=== PATIENT | male | born 1990 | race Caucasian/White ===

== ENCOUNTER 2021-06-08 09:45 | Inpatient (IN) | payer OTHER ==
[~2021-06-08] VITALS: Ht 180.3 cm; Wt 95.8 kg
--- NOTE | 2021-06-08 10:51 | NUR ---
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
--- NOTE | 2021-06-08 11:22 | NUR ---
PT CAME IN CO FATIGUE, BOATENG, CONSTIPATION. PT IS SUPPOSED TO BE TAKING SYNTHROID AND RAN OUT ABOUT A WEEK AGO AND FOR THE LAST 2 DAYS HAS HAD NO ENERGY AND HAS BEEN SLEEPING MOST OF THE DAY.
[2021-06-08] MEDS ORDERED: SODIUM CHLORIDE FLUSH 10ML SYR IVF ONE (11:30)
[2021-06-08 11:55] LABS: BASOPHILS % (AUTO) 0 % (0-1); EOSINOPHILS % (AUTO) 0 % (1-7); LYMPHOCYTES % (AUTO) 18 % (22-44); MEAN CORPUSCULAR HEMOGLOBIN 30.3 pg (27.5-34.5); MEAN CORPUSCULAR HGB CONC 34.8 g/dL (33.2-36.2); MEAN PLATELET VOLUME 7.9 fL (7.4-10.4); MONOCYTES % (AUTO) 13 % (2-9); NEUTROPHILS % (AUTO) 68 % (42-75); PLATELET COUNT 226 x10^3/uL (130-400); RED BLOOD COUNT 5.15 x10^6/uL (4.38-5.82); RED CELL DISTRIBUTION WIDTH 13.7 % (9.4-14.8)
[2021-06-08 12:04] LABS: ALBUMIN 3.8 g/dL (3.4-5.0); ANION GAP 6 mmol/L (5-15); CHLORIDE 97 mmol/L (98-107)
[2021-06-08 12:16] LABS: ALANINE AMINOTRANSFERASE 133 U/L (12-78); ALKALINE PHOSPHATASE 224 U/L (45-117); BILIRUBIN,TOTAL 1.8 mg/dL (0.2-1.0); CREATININE 1.31 mg/dL (0.7-1.3); FREE T4 (FREE THYROXINE) 0.54 ng/dL (0.76-1.46); TOTAL PROTEIN 7.5 g/dL (6.4-8.2)
[2021-06-08] MEDS ORDERED: CLINDAMYCIN PMX 600MG/50ML 50 ML ONE (14:15)
[2021-06-08] MEDS ORDERED: ONDANSETRON 2MG/ML, 2ML ONE (14:25)
[2021-06-08] MEDS ORDERED: CLINDAMYCIN PMX 600MG/50ML 50 ML IV ONE (14:30)
[2021-06-08] MEDS ORDERED: ONDANSETRON 2MG/ML, 2ML IVPush ONE (14:30)
[2021-06-08] MEDS ORDERED: SODIUM CHLORIDE 0.9% 1,000 ML IV ONE (14:30)
[2021-06-08] MEDS ORDERED: LEVOTHYROXINE 100 MCG TABLET PO ONE (14:30)
--- NOTE | 2021-06-08 15:20 | NUR ---
PER . NO BLOOD CULTURES TO BE DRAWN
[2021-06-08] MEDS ORDERED: hydrALAzine 20 MG/ML, 1ML IVPush PRN (15:30)
[2021-06-08] MEDS ORDERED: OXYcodone/APAP 5/325MG TABLET PO PRN (15:30)
[2021-06-08] MEDS ORDERED: GUAIFENESIN/DM 200-20MG, 10ML UDC PO PRN (15:30)
[2021-06-08] MEDS ORDERED: KETOROLAC 30 MG/1 ML IM PRN (15:30)
[2021-06-08] MEDS ORDERED: BUTALB/APAP/CAFFEINE 50MG/325MG/40MG PO PRN ×2 (15:30)
[2021-06-08] MEDS ORDERED: ONDANSETRON ODT 4 MG PO PRN (15:30)
[2021-06-08] MEDS ORDERED: ONDANSETRON 2MG/ML, 2ML IVPush PRN (15:30)
[2021-06-08] MEDS ORDERED: BACLOFEN 10 MG TABLET PO PRN (15:30)
[2021-06-08] MEDS ORDERED: ENALAPRILAT 1.25 MG/ML, 2ML IVPush PRN (15:30)
[2021-06-08 15:46] VITALS: BP 135/85
[2021-06-08 16:09] VITALS: BP 130/82
[2021-06-08] MEDS ORDERED: CHOL10003 PO (16:09)
[2021-06-08] MEDS ORDERED: HYDR5TAB13 PO (16:09)
[2021-06-08] MEDS ORDERED: LEVO100T PO (16:09)
[2021-06-08] MEDS: ENOXAPARIN 40 MG/0.4 ML SQ SCH (16:43)
[2021-06-08] MEDS: CLINDAMYCIN 600 MG in SODIUM CHLORIDE 0.9% 50 ML IVPB SCH ×2 (17:16→21:52)
[2021-06-08] MEDS: LEVOTHYROXINE 100 MCG INJ IVPush SCH (17:56)
[2021-06-08 20:36] VITALS: BP 124/79
[2021-06-08] MEDS: MELATONIN 5 MG TABLET PO SCH (21:00)
[2021-06-08] MEDS ORDERED: [UNRECOGNIZED DRUG - CODE] SQ (22:00)
[2021-06-08 22:29] LABS: CLOSTRIDIUM DIFFICILE ANTIGEN NEGATIVE; CLOSTRIDIUM DIFFICILE TOXIN NEGATIVE (Negative)
[2021-06-09] VITALS (7 sets, daily range): BP systolic 104–135; BP diastolic 70–92
[2021-06-09] MEDS: CLINDAMYCIN 600 MG in SODIUM CHLORIDE 0.9% 50 ML IVPB SCH ×2 (03:52→10:08)
[2021-06-09 05:31] LABS: BASOPHILS % (AUTO) 1 % (0-1); EOSINOPHILS % (AUTO) 1 % (1-7); LYMPHOCYTES % (AUTO) 29 % (22-44); MEAN CORPUSCULAR HGB CONC 34.4 g/dL (33.2-36.2); MEAN PLATELET VOLUME 7.9 fL (7.4-10.4); MONOCYTES % (AUTO) 18 % (2-9); NEUTROPHILS % (AUTO) 51 % (42-75); PLATELET COUNT 214 x10^3/uL (130-400); RED BLOOD COUNT 4.68 x10^6/uL (4.38-5.82); RED CELL DISTRIBUTION WIDTH 13.8 % (9.4-14.8)
[2021-06-09 05:35] LABS: ANION GAP 8 mmol/L (5-15); CHLORIDE 96 mmol/L (98-107); CREATININE 0.98 mg/dL (0.7-1.3)
[2021-06-09] MEDS: SENNA/DOCUSATE TABLET PO SCH (08:47)
[2021-06-09] MEDS: LEVOTHYROXINE 100 MCG INJ IVPush SCH (08:54)
[2021-06-09] MEDS ORDERED: TESTOSTERONE GEL 1%,2.5GM PACKET TD SCH (09:00)
[2021-06-09] MEDS ORDERED: HYDROCORTISONE 10 MG TABLET ONE ×2 (11:59→16:46)
[2021-06-09] MEDS: HYDROCORTISONE 5 MG TABLET PO SCH ×3 (12:00→20:40)
[2021-06-09] MEDS ORDERED: DIPHENOXYLATE/ATROPINE ORAL SOL PO PRN (12:30)
[2021-06-09] MEDS ORDERED: MEROPENEM IV SCH (13:37)
[2021-06-09] MEDS ORDERED: FAMOTIDINE 20 MG TABLET ONE (13:38)
[2021-06-09] MEDS ORDERED: DIPHENOXYLATE/ATROPINE TABLET PO PRN (14:00)
[2021-06-09] MEDS: MEROPENEM 500 MG in SODIUM CHLORIDE 0.9% 100 ML IV SCH ×2 (14:07→22:03)
[2021-06-09] MEDS: ACETAMINOPHEN 325 MG TABLET PO PRN (14:16)
[2021-06-09] MEDS: ENOXAPARIN 40 MG/0.4 ML SQ SCH (15:30)
[2021-06-09] MEDS: FAMOTIDINE 20 MG TABLET PO SCH (20:37)
[2021-06-09] MEDS: MELATONIN 5 MG TABLET PO SCH (20:37)
[2021-06-10 01:57] VITALS: BP 107/70
[2021-06-10] MEDS: ACETAMINOPHEN 325 MG TABLET PO PRN (04:06)
[2021-06-10] MEDS: MEROPENEM 500 MG in SODIUM CHLORIDE 0.9% 100 ML IV SCH (05:38)
[2021-06-10] MEDS ORDERED: LEVOTHYROXINE 100 MCG TABLET PO SCH (06:00)
[2021-06-10 07:16] VITALS: BP 104/70
[2021-06-10] MEDS: SENNA/DOCUSATE TABLET PO SCH (09:00)
[2021-06-10] MEDS ORDERED: CHOLECALCIFEROL 1,000 UNIT TABLET PO SCH (09:00)
[2021-06-10] MEDS ORDERED: TESTOSTERONE HOMETP SCH (09:00)
[2021-06-10] MEDS: HYDROCORTISONE 5 MG TABLET PO SCH (09:24)
[2021-06-10] MEDS: FAMOTIDINE 20 MG TABLET PO SCH (09:24)
[2021-06-10 10:21] LABS: ALANINE AMINOTRANSFERASE 82 U/L (12-78); ALBUMIN 3.6 g/dL (3.4-5.0); ANION GAP 9 mmol/L (5-15); CHLORIDE 102 mmol/L (98-107); CREATININE 0.75 mg/dL (0.7-1.3)
[2021-06-10 10:24] LABS: ALKALINE PHOSPHATASE 245 U/L (45-117); BILIRUBIN,TOTAL 0.8 mg/dL (0.2-1.0); TOTAL PROTEIN 7.7 g/dL (6.4-8.2)
[2021-06-10] MEDS ORDERED: HYDR5TAB13 PO (11:48)
[2021-06-10] MEDS ORDERED: CEPH500T PO (11:48)
[2021-06-10] MEDS ORDERED: LEVO100T PO (11:48)
== END 2021-06-10 14:17 | disposition home or self-care (01) | DRG 603 ==
LOC: ED 14:20 → EDIP 14:29 → ED 14:46 → 3N 15:43 → DCLOUNGE 06-10 13:58
PROVIDERS: ADMIT Internal Medicine; ATTEND Family Medicine
DX: L03.213 Periorbital cellulitis (principal); E87.1 Hypo-osmolality and hyponatremia; E23.0 Hypopituitarism; E29.1 Testicular hypofunction; E03.9 Hypothyroidism, unspecified; Z85.830 Personal history of malignant neoplasm of bone; Z90.89 Acquired absence of other organs; Z88.0 Allergy status to penicillin; Z88.1 Allergy status to other antibiotic agents; Z91.19 Patient's noncompliance with other medical treatment and regimen; Z79.899 Other long term (current) drug therapy
CPT/HCPCS: 36415; 96374; 99285; S0077; 70450; 80048; 80053; 82533; 83735; 84439; 84443; 84481; 85025; 87324; G0378; J1650; J2185; J2405; J7030